=== PATIENT | male | born 1995 | race Caucasian/White ===

== ENCOUNTER → 2017-06-12 | Outpatient (CLI) | payer BC ==
--- NOTE | 2017-06-12 18:12 | Diagnostic Imaging Report ---
PROCEDURE: MRI right joint lower extremity without contrast. TECHNIQUE: Multiplanar, multisequence non contrast-enhanced MRI of the right lower extremity was accomplished. INDICATION: Injury one week ago while dancing. COMPARISON: None. FINDINGS: There is mild bone marrow edema at the peripheral aspect of the medial femoral condyle and at the peripheral and articular surface of the lateral femoral condyle. Mild bone marrow edema is also seen in the posterolateral tibial plateau and the fibular head. There is mild impaction of the articular surface at the lateral femoral condyle. No definite other fracture lines are seen. There is a large right knee joint effusion. There is a hypointense lesion at the posterolateral aspect of the tibial metaphysis, which is only partially imaged on these views. This measures approximately 1-2 cm in size. The articular cartilage in the patellofemoral compartment and in the medial compartment appears intact. There is mild irregularity of the articular cartilage at the anterior lateral femoral condyle, may be from impaction injury. There is an oblique tear of the posterior horn of the lateral meniscus extending to the inferior articular surface. There is also linear signal at the posterior horn of the medial meniscus, without definitive extension to the articular surface. There is a complete tear of the mid to proximal anterior cruciate ligament. The posterior cruciate ligament is intact. There is also a complete full-thickness tear of the medial collateral ligament, which is redundant. The meniscofemoral ligament is torn medially. The popliteus tendon appears intact. The iliotibial band is intact. The conjoined tendon and fibular collateral ligament are intact, although there is increased signal and thickening of the proximal fibular collateral ligament. There is soft tissue edema surrounding the lateral collateral ligamentous complex. There is mild edema at the proximal patellar tendon. The medial and lateral retinacula are intact. There is mild edema in Hoffa's fat pad. Mild edema is also seen in the deep soft tissues about the knee, as well as within the popliteus musculature. No drainable fluid collections are seen. There is mild subcutaneous edema about the knee, particularly at the anteromedial aspect. The common peroneal and tibial nerves appear intact. IMPRESSION: 1. Multiple bone contusions in the distal right femur and proximal tibia/fibula, with mild impaction injury of the lateral femoral condyle. 2. Full-thickness tear of the anterior cruciate ligament and the medial collateral ligament. Grade 1-2 sprain of the fibular collateral ligament. 3. Oblique tear of the posterior horn of the lateral meniscus. Linear signal in the posterior horn of the medial meniscus is suspicious for tear as well; however, it does not extend to the articular surface. 4. Large right knee joint effusion. 5. Soft tissue edema about the right knee including grade 1 popliteus muscle strain. 6. 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 Please correlate with radiographs. Dictated by: Dictated on workstation # [id number]
== END ==
LOC: RAD 15:02
PROVIDERS: ATTEND Nurse Practitioner
DX: S70.11XA Contusion of right thigh, initial encounter (principal); S80.11XA Contusion of right lower leg, initial encounter; S83.511A Sprain of anterior cruciate ligament of right knee, initial encounter; S83.411A Sprain of medial collateral ligament of right knee, initial encounter; S83.421A Sprain of lateral collateral ligament of right knee, initial encounter; S83.281A Other tear of lateral meniscus, current injury, right knee, initial encounter; M25.461 Effusion, right knee; S86.819A Strain of other muscle(s) and tendon(s) at lower leg level, unspecified leg, initial encounter; S79.921A Unspecified injury of right thigh, initial encounter; M89.8X6 Other specified disorders of bone, lower leg; Y93.41 Activity, dancing
CPT/HCPCS: 73721